=== PATIENT | female | born 1940 | race Caucasian/White ===

== ENCOUNTER → 2017-12-20 | Outpatient (CLI) | payer OTHER, MEDICARE ==
--- NOTE | 2017-12-20 10:12 | DIAGNOSTIC IMAGING REPORT ---
CT SCAN OF THE PARANASAL SINUSES CLINICAL HISTORY: Chronic sinusitis. COMPARISON STUDY: No priors. TECHNIQUE: High-resolution CT scan of the paranasal sinuses is performed. Images are reviewed in the axial, sagittal, and coronal planes. IV contrast was not administered for this examination. A dose lowering technique was utilized adhering to the principles of ALARA. CT DOSE: 309.33 mGycm FINDINGS: Maxillary antra: Clear bilaterally. A thin bony septation is seen inferiorly on the left. Anterior ethmoid sinuses: Clear. Posterior ethmoid sinuses: Clear. Sphenoid sinuses: Clear. Frontal sinuses: Clear. Ostiomeatal complexes: Patent bilaterally. Frontoethmoidal and sphenoethmoidal recesses: Patent bilaterally. Carotid arteries: The carotid arteries are protuberant but covered. No septal attachment is identified. Ethmoid roofs: The ethmoid roofs are symmetric. Nasal turbinates: There is deb bullosa of the middle nasal turbinates. Nasal septum: There is minimal rightward deviation of the bony nasal septum. Optic nerves: Covered. Orbits: The bony orbits are intact. Orbital contents are normal in appearance noting bilateral ocular lens implants. Calvarium: The skeletal structures are osteopenic. The imaged calvarium is normal in appearance. Mastoid air cells: Well pneumatized. Brain parenchyma: Partially visualized brain parenchyma is within normal limits noting mild age-related involutional change. IMPRESSION: No paranasal sinus disease is identified. See above. Electronically signed by: Daniel Shields M.D. 12/20/2017 10:11 AM Dictated Date/Time: 12/20/2017 10:08 AM
== END | disposition home or self-care (01) ==
LOC: C.CTS 09:53 → MERGE 10:20 → UNMERGE 10:20
PROVIDERS: ATTEND Otolaryngology
DX: J32.9 Chronic sinusitis, unspecified (principal)